=== PATIENT | male | born 1970 | race Hispanic/Latino ===

== ENCOUNTER 2024-01-07 13:22 | Inpatient (IN) | payer OTHER ==
[~2024-01-07] VITALS: Ht 195.6 cm; Wt 144.3 kg
[2024-01-07] MEDS ORDERED: ONDANSETRON 4MG INJ IV PRN (15:00)
[2024-01-07] MEDS ORDERED: ACETAMINOPHEN 325 MG TAB PO PRN (15:00)
[2024-01-07] MEDS ORDERED: MAG/ALUM/SIMETH 30 ML UDCUP PO PRN (15:00)
[2024-01-07] MEDS ORDERED: NITROGLYCERIN 0.4 MG SL TAB SL PRN (15:00)
[2024-01-07] MEDS ORDERED: DEXTROSE 50%-WATER 50 ML DISP.SYRIN IV PRN (15:00)
[2024-01-07] MEDS ORDERED: DIPHENHYDRAMINE HCL 25 MG CAPSULE PO PRN (15:00)
[2024-01-07] MEDS ORDERED: GUAIFENESIN-DM 200/20 MG 10 ML PO PRN (15:00)
[2024-01-07] MEDS ORDERED: GLUCAGON 1MG KIT 1 MG ML IM PRN (15:00)
[2024-01-07] MEDS ORDERED: ACETAMINOPHEN WITH CODEINE 1 TAB TAB PO PRN (15:00)
[2024-01-07 15:04] LABS: HEMATOCRIT 42.8 % (42-54); MEAN CORPUSCULAR HEMOGLOBIN 28.1 pg (27.0-33.0); MEAN CORPUSCULAR HGB CONC 31.5 g/dL (32.0-36.0); MEAN CORPUSCULAR VOLUME 89.2 fL (79-99); PLATELET COUNT (AUTO) 261 K/uL (130-400); RED CELL DISTRIBUTION WIDTH 13.8 % (11.0-15.5); WHITE BLOOD COUNT (AUTO) 6.8 K/uL (4.8-10.8)
[2024-01-07 15:12] LABS: CREATININE 1.5 mg/dL (0.5-1.3)
[2024-01-07 15:17] LABS: ALBUMIN 3.1 g/dL (3.5-5.0); BILIRUBIN,TOTAL 0.5 mg/dL (0.2-1.0)
[2024-01-07 15:22] LABS: HEMOGLOBIN A1C 8.9 % (4.0-6.0)
[2024-01-07 15:28] LABS: B-TYPE NATRIURETIC PEPTIDE 474 pg/mL (0-100)
[2024-01-07 15:55] LABS: LYMPHOCYTES % (AUTO) 15.2 % (21.0-51.0); NEUTROPHILS % (AUTO) 73.7 % (40.0-77.0)
[2024-01-07 15:56] LABS: BASOPHILS # (AUTO) 0.05 K/uL (0.00-0.20); BASOPHILS % (AUTO) 0.7 % (0.0-5.0); EOSINOPHILS # (AUTO) 0.13 K/uL (0.00-0.70); EOSINOPHILS % (AUTO) 1.9 % (0.0-8.0); IMMATURE GRANULOCYTE ABSOLUTE 0.02 K/uL (0-1); MONOCYTES # (AUTO) 0.6 K/uL (0.1-1.0); MONOCYTES % (AUTO) 8.2 % (3.0-13.0); NEUTROPHILS # (AUTO) 5.1 K/uL (1.8-7.7)
[2024-01-07] MEDS: INSULIN HUMULIN R 100 UNIT/ML 3ML SQ SCH (16:30)
[2024-01-07 17:45] VITALS: BP 134/94; PULSE 116; RESP 18
[2024-01-07 18:40] VITALS: O2SAT 96
[2024-01-07 19:50] VITALS: BP 147/93; PULSE 70; RESP 20
[2024-01-07 20:00] VITALS: O2SAT 97
[2024-01-07] MEDS: FAMOTIDINE 20MG VIAL IV SCH (20:16)
[2024-01-07] MEDS: FUROSEMIDE 40MG VIAL IVP SCH (20:17)
[2024-01-07] MEDS: ATORVASTATIN 40 MG TABLET PO SCH (20:17)
[2024-01-07] MEDS ORDERED: METF-446 PO (20:35)
[2024-01-07] MEDS ORDERED: ATOR40TA71 PO (20:35)
[2024-01-07] MEDS ORDERED: GLIM4TAB36 PO (20:35)
[2024-01-07] MEDS ORDERED: RIVA20TA PO (20:35)
[2024-01-07] MEDS ORDERED: FURO40TA5 PO (20:35)
[2024-01-07] MEDS ORDERED: LINA290C PO (20:35)
[2024-01-07] MEDS ORDERED: LOSA1TAB42 PO (20:35)
[2024-01-07] MEDS ORDERED: HYOS-14 PO (20:35)
[2024-01-07 23:36] VITALS: BP 150/95; PULSE 81; RESP 22
[2024-01-08] VITALS (9 sets, daily range): BP systolic 131–149; BP diastolic 95–106; PULSE 72–103; RESP 18–20; O2SAT 98–99
[2024-01-08] MEDS: METOPROLOL TARTRATE 1 MG/ML 5ML VIAL IV ONE (00:40)
[2024-01-08] MEDS: RIVAROXABAN 20 MG TABLET PO SCH (08:06)
[2024-01-08] MEDS: LOSARTAN 100 MG TABLET PO SCH (08:07)
[2024-01-08] MEDS: METOPROLOL SUCCINATE 25 MG TAB.SR.24H PO SCH (08:07)
[2024-01-08 08:18] LABS: MEAN CORPUSCULAR HEMOGLOBIN 28.3 pg (27.0-33.0); MEAN CORPUSCULAR HGB CONC 32.9 g/dL (32.0-36.0); RED BLOOD CELL COUNT(AUTO) 4.77 MIL/uL (4.50-6.20); RED CELL DISTRIBUTION WIDTH 13.9 % (11.0-15.5); WHITE BLOOD COUNT (AUTO) 6.6 K/uL (4.8-10.8)
[2024-01-08 08:33] LABS: BILIRUBIN,TOTAL 0.9 mg/dL (0.2-1.0); CREATININE 1.4 mg/dL (0.5-1.3); POTASSIUM 3.8 mmol/L (3.5-5.1)
[2024-01-08] MEDS ORDERED: METOPROLOL SUCCINATE 25 MG TAB.SR.24H PO SCH (09:00)
[2024-01-08] MEDS: HYDRALAZINE HCL 10 MG TABLET PO SCH (13:53)
[2024-01-09] VITALS (8 sets, daily range): BP systolic 139–145; BP diastolic 92–107; PULSE 88–102; RESP 16–20; O2SAT 98–99
[2024-01-09 04:06] LABS: BASOPHILS # (AUTO) 0.08 K/uL (0.00-0.20); BASOPHILS % (AUTO) 1.1 % (0.0-5.0); EOSINOPHILS # (AUTO) 0.18 K/uL (0.00-0.70); EOSINOPHILS % (AUTO) 2.5 % (0.0-8.0); HEMATOCRIT 44.1 % (42-54); IMMATURE GRANULOCYTE ABSOLUTE 0.02 K/uL (0-1); LYMPHOCYTES # (AUTO) 1.1 K/uL (1.0-4.8); LYMPHOCYTES % (AUTO) 15.7 % (21.0-51.0); MEAN CORPUSCULAR HEMOGLOBIN 28.2 pg (27.0-33.0); MEAN CORPUSCULAR HGB CONC 31.3 g/dL (32.0-36.0); MEAN CORPUSCULAR VOLUME 90.2 fL (79-99); MONOCYTES # (AUTO) 0.6 K/uL (0.1-1.0); MONOCYTES % (AUTO) 8.7 % (3.0-13.0); NEUTROPHILS # (AUTO) 5.1 K/uL (1.8-7.7); NEUTROPHILS % (AUTO) 71.7 % (40.0-77.0); PLATELET COUNT (AUTO) 256 K/uL (130-400); RED BLOOD CELL COUNT(AUTO) 4.89 MIL/uL (4.50-6.20); RED CELL DISTRIBUTION WIDTH 13.8 % (11.0-15.5); WHITE BLOOD COUNT (AUTO) 7.2 K/uL (4.8-10.8)
[2024-01-09 04:21] LABS: CREATININE 1.6 mg/dL (0.5-1.3); MAGNESIUM 1.8 mg/dL (1.80-2.40); PHOSPHORUS 4.5 mg/dL (2.5-4.9); POTASSIUM 3.6 mmol/L (3.5-5.1)
[2024-01-09 04:40] LABS: B-TYPE NATRIURETIC PEPTIDE 578 pg/mL (0-100)
[2024-01-09] MEDS: HYDRALAZINE 20MG/ML VIAL IV PRN (04:40)
[2024-01-09] MEDS: ATORVASTATIN 40 MG TABLET PO SCH (09:24)
[2024-01-09] MEDS: LACTULOSE 20 GM/30 ML UDCUP PO PRN (09:25)
[2024-01-09] MEDS: SPIRONOLACTONE 25 MG TAB PO ONE (10:19)
[2024-01-09] MEDS: SACUBITRIL/VALSARTAN 1 EACH TABLET PO SCH (21:14)
[2024-01-10 00:28] VITALS: BP 115/76; PULSE 86; RESP 18
[2024-01-10 03:26] VITALS: BP 144/100; PULSE 68; RESP 18
[2024-01-10 05:05] LABS: BASOPHILS # (AUTO) 0.06 K/uL (0.00-0.20); BASOPHILS % (AUTO) 0.9 % (0.0-5.0); EOSINOPHILS # (AUTO) 0.17 K/uL (0.00-0.70); EOSINOPHILS % (AUTO) 2.5 % (0.0-8.0); HEMATOCRIT 42.2 % (42-54); IMMATURE GRANULOCYTE ABSOLUTE 0.02 K/uL (0-1); LYMPHOCYTES % (AUTO) 15.3 % (21.0-51.0); MEAN CORPUSCULAR HEMOGLOBIN 27.8 pg (27.0-33.0); MEAN CORPUSCULAR HGB CONC 31.5 g/dL (32.0-36.0); MEAN CORPUSCULAR VOLUME 88.3 fL (79-99); MONOCYTES # (AUTO) 0.7 K/uL (0.1-1.0); MONOCYTES % (AUTO) 9.7 % (3.0-13.0); NEUTROPHILS # (AUTO) 4.8 K/uL (1.8-7.7); NEUTROPHILS % (AUTO) 71.3 % (40.0-77.0); PLATELET COUNT (AUTO) 256 K/uL (130-400); RED BLOOD CELL COUNT(AUTO) 4.78 MIL/uL (4.50-6.20); RED CELL DISTRIBUTION WIDTH 13.6 % (11.0-15.5); WHITE BLOOD COUNT (AUTO) 6.7 K/uL (4.8-10.8)
[2024-01-10 05:11] LABS: CREATININE 1.4 mg/dL (0.5-1.3); POTASSIUM 3.3 mmol/L (3.5-5.1)
[2024-01-10] MEDS ORDERED: POTASSIUM CHLORIDE 20MEQ/100ML 100 ML IV PRN (06:00)
[2024-01-10] MEDS ORDERED: POTASSIUM CHLORIDE 10% ELIXIR 20 MEQ/15 ML UDCUP PO PRN (06:00)
[2024-01-10] MEDS: KCL 20 MEQ ERTAB PO PRN (06:06)
[2024-01-10 08:02] VITALS: BP 140/97; PULSE 88; RESP 18
[2024-01-10] MEDS ORDERED: SPIR25TA6 PO (08:24)
[2024-01-10] MEDS ORDERED: SACU1TAB7 PO (08:24)
[2024-01-10] MEDS ORDERED: METO-391 PO (08:24)
[2024-01-10 08:57] LABS: CREATININE 1.3 mg/dL (0.5-1.3); POTASSIUM 3.6 mmol/L (3.5-5.1)
[2024-01-10] MEDS: SACUBITRIL/VALSARTAN 1 EACH TABLET PO SCH (09:40)
[2024-01-10] MEDS: SPIRONOLACTONE 25 MG TAB PO SCH (09:41)
[2024-01-10 10:00] VITALS: O2SAT 97
[2024-01-10] MEDS: MAGNESIUM 2GM PREMIX 50ML 50 ML IV ONE (10:03)
[2024-01-10 11:35] VITALS: BP 146/96; PULSE 99; RESP 18
== END 2024-01-10 14:45 | disposition home or self-care (01) | DRG 291 ==
LOC: EDH 13:22 → EDHIP 15:04 → 2DH 16:19
PROVIDERS: ADMIT Internal Medicine; ATTEND Internal Medicine
DX: I13.0 Hypertensive heart and chronic kidney disease with heart failure and stage 1 through stage 4 chronic kidney disease, or unspecified chronic kidney disease (principal); I50.43 Acute on chronic combined systolic (congestive) and diastolic (congestive) heart failure; N17.9 Acute kidney failure, unspecified; I48.91 Unspecified atrial fibrillation; E78.5 Hyperlipidemia, unspecified; N18.32 Chronic kidney disease, stage 3b; E11.22 Type 2 diabetes mellitus with diabetic chronic kidney disease; I42.9 Cardiomyopathy, unspecified; Z79.899 Other long term (current) drug therapy; Z87.891 Personal history of nicotine dependence; Z79.01 Long term (current) use of anticoagulants
CPT/HCPCS: 36415; 71045; 80048; 80053; 80061; 82948; 83036; 83605; 83735; 83880; 84100; 85025; 85027; 93306; A6250; G0378; J0360; J1815; J1940; J3475; J3490

== ENCOUNTER 2024-01-25 06:02 | Emergency (ER) | payer OTHER ==
[~2024-01-25] VITALS: Ht 193 cm; Wt 147.9 kg
[~2024-01-25 06:02] MED LIST: ATOR40TA71 PO; FURO40TA5 PO; GLIM4TAB36 PO; HYOS-14 PO; LINA290C PO; METF-446 PO; METO-391 PO; RIVA20TA PO; SACU1TAB7 PO; SPIR25TA6 PO
[2024-01-25 06:54] LABS: BASOPHILS # (AUTO) 0.06 K/uL (0.00-0.20); EOSINOPHILS # (AUTO) 0.14 K/uL (0.00-0.70); EOSINOPHILS % (AUTO) 2.3 % (0.0-8.0); HEMATOCRIT 46.5 % (42-54); IMMATURE GRANULOCYTE ABSOLUTE 0.02 K/uL (0-1); LYMPHOCYTES # (AUTO) 0.8 K/uL (1.0-4.8); LYMPHOCYTES % (AUTO) 13.6 % (21.0-51.0); MEAN CORPUSCULAR HEMOGLOBIN 27.9 pg (27.0-33.0); MEAN CORPUSCULAR HGB CONC 31.4 g/dL (32.0-36.0); MEAN CORPUSCULAR VOLUME 88.9 fL (79-99); MONOCYTES # (AUTO) 0.5 K/uL (0.1-1.0); MONOCYTES % (AUTO) 8.6 % (3.0-13.0); NEUTROPHILS # (AUTO) 4.6 K/uL (1.8-7.7); NEUTROPHILS % (AUTO) 74.2 % (40.0-77.0); PLATELET COUNT (AUTO) 242 K/uL (130-400); RED BLOOD CELL COUNT(AUTO) 5.23 MIL/uL (4.50-6.20); RED CELL DISTRIBUTION WIDTH 14.2 % (11.0-15.5); WHITE BLOOD COUNT (AUTO) 6.2 K/uL (4.8-10.8)
[2024-01-25 07:12] LABS: ALBUMIN 3.3 g/dL (3.5-5.0); BILIRUBIN,TOTAL 0.9 mg/dL (0.2-1.0); CREATININE 1.4 mg/dL (0.5-1.3); MAGNESIUM 1.9 mg/dL (1.80-2.40); POTASSIUM 4.3 mmol/L (3.5-5.1); TOTAL PROTEIN, SERUM 7.8 g/dL (6.0-8.3)
[2024-01-25 09:31] LABS: APPEARANCE,URINE CLEAR (CLEAR); BILIRUBIN,URINE NEGATIVE (NEGATIVE); COLOR,URINE YELLOW (YELLOW); GLUCOSE, URINE (UA) NEGATIVE (NEGATIVE); KETONES,URINE NEGATIVE (NEGATIVE); LEUKOCYTE ESTERASE ,URINE NEGATIVE Leu/uL (NEGATIVE); NITRATE,URINE NEGATIVE (NEGATIVE); PH,URINE 5.5 (5.0-8.0); PROTEIN,URINE 100 mg/dL (NEGATIVE); UROBILINOGEN,URINE 0.2 mg/dL (0.2-1.0)
[2024-01-25 09:33] VITALS: BP 137/88; PULSE 64; RESP 17; O2SAT 99
[2024-01-25 09:39] LABS: ADD UA MICROSCOPIC YES
[2024-01-25 09:42] LABS: BACTERIA,URINE FEW /HPF (None Seen); MUCUS,URINE RARE LPF (None Seen); OTHER CASTS, URINE 4 /LPF (None Seen)
[2024-01-25] MEDS: FUROSEMIDE 40MG VIAL IV ONE (10:01)
== END 2024-01-25 10:32 | disposition home or self-care (01) ==
LOC: EDH 06:02
DX: I50.20 Unspecified systolic (congestive) heart failure (principal); I11.0 Hypertensive heart disease with heart failure; I50.9 Heart failure, unspecified; E11.9 Type 2 diabetes mellitus without complications; E78.00 Pure hypercholesterolemia, unspecified; J90 Pleural effusion, not elsewhere classified; R18.8 Other ascites; Z79.899 Other long term (current) drug therapy; Z79.82 Long term (current) use of aspirin; Z79.84 Long term (current) use of oral hypoglycemic drugs; Z98.890 Other specified postprocedural states
CPT/HCPCS: 99285; 74176; 96374; 83735; 80053; 83880; 85025; 81001; 36415; J1940

== ENCOUNTER 2024-02-09 08:40 | Inpatient (IN) | payer OTHER ==
[~2024-02-09] VITALS: Ht 193 cm; Wt 135.2 kg
[2024-02-09] VITALS (8 sets, daily range): BP systolic 104–134; BP diastolic 80–90; PULSE 86–96; RESP 18–22; O2SAT 95–99
[2024-02-09 09:09] LABS: HEMATOCRIT 38.5 % (42-54); MEAN CORPUSCULAR HEMOGLOBIN 27.4 pg (27.0-33.0); MEAN CORPUSCULAR HGB CONC 32.2 g/dL (32.0-36.0); MEAN CORPUSCULAR VOLUME 85.2 fL (79-99); RED BLOOD CELL COUNT(AUTO) 4.52 MIL/uL (4.50-6.20); RED CELL DISTRIBUTION WIDTH 15.1 % (11.0-15.5); WHITE BLOOD COUNT (AUTO) 5.8 K/uL (4.8-10.8)
[2024-02-09 09:19] LABS: CREATININE 1.5 mg/dL (0.5-1.3); POTASSIUM 4.4 mmol/L (3.5-5.1)
[2024-02-09 09:24] LABS: ALBUMIN 2.9 g/dL (3.5-5.0); BILIRUBIN,TOTAL 0.9 mg/dL (0.2-1.0); TOTAL PROTEIN, SERUM 7.2 g/dL (6.0-8.3)
[2024-02-09] MEDS: ASPIRIN 325MG TAB PO ONE (09:47)
[2024-02-09] MEDS: FUROSEMIDE 40MG VIAL IV ONE (09:47)
[2024-02-09] MEDS ORDERED: IPRATROPIUM 0.5 MG/2.5 ML INH IH PRN (11:00)
[2024-02-09] MEDS ORDERED: POTASSIUM CHLORIDE 10% ELIXIR 20 MEQ/15 ML UDCUP PO PRN (11:00)
[2024-02-09] MEDS ORDERED: POTASSIUM CHLORIDE 20MEQ/100ML 100 ML IV PRN (11:00)
[2024-02-09 11:06] LABS: HEMOGLOBIN A1C 8.1 % (4.0-6.0)
[2024-02-09] MEDS: INSULIN HUMULIN R 100 UNIT/ML 3ML SQ SCH (11:30)
[2024-02-09] MEDS: PANTOPRAZOLE 40 MG TAB DR PO SCH (11:34)
[2024-02-09 11:45] LABS: APPEARANCE,URINE CLEAR (CLEAR); BILIRUBIN,URINE NEGATIVE (NEGATIVE); COLOR,URINE COLORLESS (YELLOW); GLUCOSE, URINE (UA) NEGATIVE (NEGATIVE); KETONES,URINE NEGATIVE (NEGATIVE); LEUKOCYTE ESTERASE ,URINE NEGATIVE Leu/uL (NEGATIVE); NITRATE,URINE NEGATIVE (NEGATIVE); OCCULT BLOOD,URINE NEGATIVE (NEGATIVE); PROTEIN,URINE NEGATIVE (NEGATIVE); UROBILINOGEN,URINE 0.2 mg/dL (0.2-1.0)
[2024-02-09 11:47] LABS: ADD UA MICROSCOPIC NO; CREATININE,URINE RANDOM 11.43 mg/dL (30-135); PROTEIN,URINE RANDOM 11.7 mg/dL (0-11.9)
[2024-02-09 11:53] LABS: INR 1.22 (0.85-1.15); PROTHROMBIN TIME 14.2 SEC (9.6-11.6)
[2024-02-09 11:55] LABS: PARTIAL THROMBOPLASTIN TIME 35.7 SEC (26.3-35.5)
[2024-02-09 11:56] LABS: MAGNESIUM 2.1 mg/dL (1.80-2.40); THYROID STIMULATING HORMONE 3.13 uIU/mL (0.36-3.74)
[2024-02-09] MEDS: TAMSULOSIN HCL 0.4 MG CAP.ER.24H PO SCH (12:30)
[2024-02-09] MEDS: METOLAZONE 2.5 MG TABLET PO ONE (13:30)
[2024-02-09] MEDS: BUMETANIDE 1MG/4ML VIAL IVP SCH (14:00)
[2024-02-09 14:17] LABS: CREATININE 1.4 mg/dL (0.5-1.3); MAGNESIUM 2.2 mg/dL (1.80-2.40); POTASSIUM 4.6 mmol/L (3.5-5.1)
[2024-02-09] MEDS: BUDESONIDE 0.5 MG/2 ML INH IH SCH (17:15)
[2024-02-09 17:36] LABS: CREATININE,URINE RANDOM 12.75 mg/dL (30-135)
[2024-02-09] MEDS: SACUBITRIL/VALSARTAN 1 EACH TABLET PO SCH (21:44)
[2024-02-09] MEDS: ATORVASTATIN 40 MG TABLET PO SCH (21:45)
[2024-02-10] VITALS (12 sets, daily range): BP systolic 128–149; BP diastolic 78–97; PULSE 80–94; RESP 18–22; O2SAT 96–99
[2024-02-10 03:58] LABS: BASOPHILS # (AUTO) 0.05 K/uL (0.00-0.20); BASOPHILS % (AUTO) 0.8 % (0.0-5.0); EOSINOPHILS # (AUTO) 0.14 K/uL (0.00-0.70); EOSINOPHILS % (AUTO) 2.4 % (0.0-8.0); HEMATOCRIT 40.1 % (42-54); IMMATURE GRANULOCYTE ABSOLUTE 0.02 K/uL (0-1); LYMPHOCYTES # (AUTO) 0.8 K/uL (1.0-4.8); LYMPHOCYTES % (AUTO) 14.1 % (21.0-51.0); MEAN CORPUSCULAR HEMOGLOBIN 26.9 pg (27.0-33.0); MEAN CORPUSCULAR HGB CONC 31.4 g/dL (32.0-36.0); MEAN CORPUSCULAR VOLUME 85.7 fL (79-99); MONOCYTES # (AUTO) 0.5 K/uL (0.1-1.0); NEUTROPHILS # (AUTO) 4.3 K/uL (1.8-7.7); NEUTROPHILS % (AUTO) 73.4 % (40.0-77.0); PLATELET COUNT (AUTO) 295 K/uL (130-400); RED BLOOD CELL COUNT(AUTO) 4.68 MIL/uL (4.50-6.20); RED CELL DISTRIBUTION WIDTH 15.2 % (11.0-15.5); WHITE BLOOD COUNT (AUTO) 5.9 K/uL (4.8-10.8)
[2024-02-10 04:23] LABS: ALBUMIN 2.9 g/dL (3.5-5.0); BILIRUBIN,TOTAL 0.7 mg/dL (0.2-1.0); CREATININE 1.5 mg/dL (0.5-1.3); MAGNESIUM 1.9 mg/dL (1.80-2.40); POTASSIUM 4.2 mmol/L (3.5-5.1); TOTAL PROTEIN, SERUM 7.2 g/dL (6.0-8.3)
[2024-02-10] MEDS: RIVAROXABAN 20 MG TABLET PO SCH (09:08)
[2024-02-10] MEDS: METOPROLOL SUCCINATE 50 MG TAB.SR.24H PO SCH (09:08)
[2024-02-10] MEDS: METOLAZONE 2.5 MG TABLET PO SCH (11:58)
[2024-02-10 17:02] LABS: POTASSIUM 4.2 mmol/L (3.5-5.1)
[2024-02-10] MEDS: LACTULOSE 20 GM/30 ML UDCUP PO SCH (20:22)
[2024-02-11] VITALS (12 sets, daily range): BP systolic 125–160; BP diastolic 82–100; PULSE 85–94; RESP 18–22; O2SAT 94–99
[2024-02-11 03:51] LABS: HEMATOCRIT 37.8 % (42-54); MEAN CORPUSCULAR HEMOGLOBIN 27.8 pg (27.0-33.0); MEAN CORPUSCULAR HGB CONC 33.1 g/dL (32.0-36.0); MEAN CORPUSCULAR VOLUME 84.2 fL (79-99); RED BLOOD CELL COUNT(AUTO) 4.49 MIL/uL (4.50-6.20); RED CELL DISTRIBUTION WIDTH 14.8 % (11.0-15.5); WHITE BLOOD COUNT (AUTO) 6.2 K/uL (4.8-10.8)
[2024-02-11 05:19] LABS: ALBUMIN 2.8 g/dL (3.5-5.0); BILIRUBIN,TOTAL 0.9 mg/dL (0.2-1.0); CREATININE 1.3 mg/dL (0.5-1.3); MAGNESIUM 1.8 mg/dL (1.80-2.40); POTASSIUM 3.7 mmol/L (3.5-5.1); TOTAL PROTEIN, SERUM 7.1 g/dL (6.0-8.3)
[2024-02-11] MEDS: KCL 20 MEQ ERTAB PO PRN (05:48)
[2024-02-11] MEDS: MAGNESIUM 2GM PREMIX 50ML 50 ML IV SCH (05:48)
[2024-02-11] MEDS: METOLAZONE 2.5 MG TABLET PO ONE (09:43)
[2024-02-12] VITALS (10 sets, daily range): BP systolic 119–141; BP diastolic 84–93; PULSE 82–108; RESP 18–20; O2SAT 97–99
[2024-02-12 05:07] LABS: HEMATOCRIT 40.9 % (42-54); MEAN CORPUSCULAR HEMOGLOBIN 27.3 pg (27.0-33.0); MEAN CORPUSCULAR VOLUME 85.4 fL (79-99); RED BLOOD CELL COUNT(AUTO) 4.79 MIL/uL (4.50-6.20); RED CELL DISTRIBUTION WIDTH 14.5 % (11.0-15.5); WHITE BLOOD COUNT (AUTO) 5.7 K/uL (4.8-10.8)
[2024-02-12 05:16] LABS: ALBUMIN 2.9 g/dL (3.5-5.0); BILIRUBIN,TOTAL 0.9 mg/dL (0.2-1.0); CREATININE 1.4 mg/dL (0.5-1.3); MAGNESIUM 1.9 mg/dL (1.80-2.40); POTASSIUM 3.7 mmol/L (3.5-5.1); TOTAL PROTEIN, SERUM 7.2 g/dL (6.0-8.3)
[2024-02-12] MEDS: METOLAZONE 2.5 MG TABLET PO ONE (09:57)
[2024-02-12 17:10] LABS: ALBUMIN (IFE & ELECTROPHOR) 3.1 g/dL (2.9-4.4); ALBUMIN/GLOBULIN RATIO (IFE) 0.9 (0.7-1.7); ALPHA-1 (IFE & PEP) 0.3 g/dL (0.0-0.4); ALPHA-2 (IFE & PEP) 0.7 g/dL (0.4-1.0); BETA (IFE & ELP) 0.9 g/dL (0.7-1.3); GAMMA GLOBULINS (IFE & ELP) 1.6 g/dL (0.4-1.8); GLOBULIN TOTAL (IFE) 3.5 g/dL (2.2-3.9); IGA (IFE) 354 mg/dL (90-386); IGG (IMMUNOFIXATION) 1608 mg/dL (603-1613); IGM (IMMUNOFIXATION) 71 mg/dL (20-172); M-SPIKE (IEP) Not Observed g/dL (Not Observed); TOTAL PROTEIN 6.6 g/dL (6.0-8.5)
[2024-02-13] VITALS: BP 112/74; PULSE 82; RESP 18
[2024-02-13 04:00] VITALS: BP 128/92; PULSE 86; RESP 20
[2024-02-13] MEDS: ACETAMINOPHEN 500 MG TABLET PO PRN (04:21)
[2024-02-13 04:31] LABS: HEMATOCRIT 39.1 % (42-54); MEAN CORPUSCULAR HEMOGLOBIN 27.2 pg (27.0-33.0); MEAN CORPUSCULAR HGB CONC 32.7 g/dL (32.0-36.0); MEAN CORPUSCULAR VOLUME 83.2 fL (79-99); RED BLOOD CELL COUNT(AUTO) 4.7 MIL/uL (4.50-6.20); RED CELL DISTRIBUTION WIDTH 14.6 % (11.0-15.5); WHITE BLOOD COUNT (AUTO) 5.5 K/uL (4.8-10.8)
[2024-02-13 04:46] LABS: ALBUMIN 2.9 g/dL (3.5-5.0); BILIRUBIN,TOTAL 0.8 mg/dL (0.2-1.0); CREATININE 1.5 mg/dL (0.5-1.3); MAGNESIUM 1.9 mg/dL (1.80-2.40); POTASSIUM 3.5 mmol/L (3.5-5.1); TOTAL PROTEIN, SERUM 7.3 g/dL (6.0-8.3)
[2024-02-13 06:50] VITALS: PULSE 86; RESP 18; O2SAT 99
[2024-02-13 06:51] VITALS: PULSE 86; RESP 19
[2024-02-13 08:00] VITALS: BP 124/85; PULSE 69; RESP 16; O2SAT 98
[2024-02-13 12:00] VITALS: BP 126/88; PULSE 85; RESP 16
[2024-02-13] MEDS ORDERED: TAMS-1 PO (13:29)
[2024-02-13] MEDS ORDERED: FURO40TA5 PO (15:57)
== END 2024-02-13 15:00 | disposition home or self-care (01) | DRG 291 ==
LOC: EDH 08:40 → EDHIP 10:42 → 2DH 14:49 → 4BH 02-11 18:53
PROVIDERS: ADMIT Internal Medicine; ATTEND Internal Medicine
DX: I13.0 Hypertensive heart and chronic kidney disease with heart failure and stage 1 through stage 4 chronic kidney disease, or unspecified chronic kidney disease (principal); I50.43 Acute on chronic combined systolic (congestive) and diastolic (congestive) heart failure; N17.9 Acute kidney failure, unspecified; I48.91 Unspecified atrial fibrillation; I80.01 Phlebitis and thrombophlebitis of superficial vessels of right lower extremity; G47.33 Obstructive sleep apnea (adult) (pediatric); E66.9 Obesity, unspecified; E78.00 Pure hypercholesterolemia, unspecified; N18.30 Chronic kidney disease, stage 3 unspecified; E11.22 Type 2 diabetes mellitus with diabetic chronic kidney disease; F17.210 Nicotine dependence, cigarettes, uncomplicated; I42.9 Cardiomyopathy, unspecified; Z79.899 Other long term (current) drug therapy; Z82.3 Family history of stroke; Z83.3 Family history of diabetes mellitus; Z79.01 Long term (current) use of anticoagulants; Z86.73 Personal history of transient ischemic attack (TIA), and cerebral infarction without residual deficits; Z82.49 Family history of ischemic heart disease and other diseases of the circulatory system; Z89.422 Acquired absence of other left toe(s); Z68.36 Body mass index [BMI] 36.0-36.9, adult
CPT/HCPCS: 36415; 71045; 76700; 80048; 80053; 80061; 81003; 82550; 82570; 82948; 83036; 83735; 83880; 84132; 84145; 84156; 84300; 84443; 84484; 85025; 85027; 85610; 85651; 85730; 86140; 86334; 93005; 93970; 94640; 94664; 96374; 96375; G0378; J1815; J1940; J3475; J3490